=== PATIENT | female | born 1975 | race Caucasian/White ===

== ENCOUNTER 2017-02-06 22:23 | Emergency (ER) | payer BC ==
--- NOTE | 2017-02-09 01:37 | ER ---
ADMIT: 02/06/2017 RM/LOC: ER [facility] MR#: [id number] [address] [id number] MA[address] DILL [address] [place] [id number] Emergency Room Report SEX: F AGE: 41 : 1975 DATE: 02/06/2017 HISTORY OF PRESENT ILLNESS: The patient is a 41-year-old female, presents to the emergency room with a headache for about 3 days now. She has had migraine headaches in the past. She has had a left temporal headache she points behind the left eye. She feels like her arms are heavy, nausea, vomiting, sensitivity to light. She has been nauseated approximately for 1 month now. She has some dizziness as well. REVIEW OF SYSTEMS: Otherwise negative. 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 PAST SURGICAL HISTORY: She has had an appendectomy, cholecystectomy, shoulder surgery, hysterectomy, right nephrectomy, wrist surgery, hiatal hernia surgery. MEDICATIONS: She takes: 1. Plavix. 2. Bystolic. 3. Lasix. 4. Imitrex. 5. Tribenzor. ALLERGIES: TO MORPHINE. SOCIAL HISTORY: She continues smoking half a pack a day. PHYSICAL EXAMINATION: VITAL SIGNS: Blood pressure is 194/65, heart rate is 86, respirations are 18, temperature is 97.1, O2 saturations 96%. GENERAL: Moderately anxious with photophobia, obviously in distress. NECK: Supple. RESPIRATIONS: No distress. CVS: Regular in rate and rhythm. ABDOMEN: Nontender. EXTREMITIES: Well perfused. NEUROLOGICAL: Oriented x4, and alert. Orthostatic blood pressure lying down; heart rate of 65, with a blood pressure of 97/65, pulse of 73. Sitting; no dizziness, heart rate 68, blood pressure 110/71, with a 79 pulse. Standing; no dizziness, blood pressure 105/69, pulse ADMIT: 02/06/2017 RM/LOC: ER [facility] MR#: [id number] [address] [place] [id number] [address] D[address] [place] [id number] Emergency Room Report SEX: F AGE: 41 : 1975 79. IMAGING: MRI this afternoon was negative, this was done by her primary provider and tonight, we did give her IV fluids with Reglan, Benadryl, her headache went from 6/10 to 4 to 3/10. CLINICAL IMPRESSION: 1. Migraine headache. 2. Mild dehydration. PLAN: The patient discharged home with instructions to not to take her blood pressure medication in the morning and follow up with Susana Cardona in the morning. PACHECO Cook / Jan Elmore MD / pamelal JOB #: [id number] CC: Jan Elmore MD, Attending Physician
== END 2017-02-07 00:28 | disposition home or self-care (01) ==
LOC: ER 22:23
DX: G43.909 Migraine, unspecified, not intractable, without status migrainosus (principal); I10 Essential (primary) hypertension; Z90.49 Acquired absence of other specified parts of digestive tract; Z88.8 Allergy status to other drugs, medicaments and biological substances; Z79.899 Other long term (current) drug therapy